=== PATIENT | female | born 1995 | race Caucasian/White ===

== ENCOUNTER 2018-09-19 00:55 | Emergency (ER) | payer SELFPAY ==
[~2018-09-19] VITALS: Ht 162.6 cm; Wt 100.0 kg
[2018-09-19 01:02] VITALS: BP 132/62; TEMP 97.4
[2018-09-19] MEDS ORDERED: ZANTAC 7575 MG PO (01:12)
[2018-09-19] MEDS ORDERED: CEPHALEXIN500 M1 PO (01:19)
[2018-09-19 01:28] VITALS: PULSE 91
== END 2018-09-19 01:28 | disposition home or self-care (01) ==
LOC: COL.ER 00:55
DX: S90.562A Insect bite (nonvenomous), left ankle, initial encounter (principal); R21 Rash and other nonspecific skin eruption; K58.9 Irritable bowel syndrome, unspecified; W57.XXXA Bitten or stung by nonvenomous insect and other nonvenomous arthropods, initial encounter